=== PATIENT | female | born 1950 | race Caucasian/White ===

== ENCOUNTER 2016-11-16 13:35 | Emergency (ER) | payer MEDICARE ==
[2016-11-16 14:13] LABS: BASOPHIL# 0.1 X 10^3uL (0.0-0.1); BASOPHILS 0.9 % (0.0-2.0); EOSINOPHILS 13.3 % (0.0-6.0); EOSINOPHILS# 0.9 X 10^3uL (0.0-0.4); HEMATOCRIT 40.3 % (36.0-48.0); HEMOGLOBIN 13.7 g/dL (12.0-16.0); LYMPHOCYTES 20.5 % (20.0-40.0); LYMPHOCYTES# 1.4 X 10^3uL (0.8-3.8); MEAN CELL VOLUME 87.3 fL (80.0-100.0); MEAN CORPUS. HGB CONCENTRATION 33.9 g/dL (32.0-36.0); MEAN CORPUSCULAR HEMOGLOBIN 29.6 pg (29.0-35.0); MONOCYTES 6.2 % (2.0-10.0); MONOCYTES# 0.4 X 10^3uL (0.2-1.0); NEUTROPHILS 59.1 % (54.0-75.0); NEUTROPHILS# 3.9 X 10^3uL (2.6-6.7); RED BLOOD COUNT 4.62 X 10^6uL (4.20-6.10); RED CELL DISTRIBUTION WIDTH 12.8 % (11.5-14.5); WHITE BLOOD COUNT 6.7 X 10^3uL (3.9-10.7)
[2016-11-16 14:26] LABS: A/G RATIO 1.2; ALBUMIN 3.8 g/dL (3.5-5.0); BILIRUBIN, TOTAL 0.6 mg/dL (0.2-1.3); C-REACTIVE PROTEIN 6.6 mg/L (<10.0); CALCIUM 8.9 mg/dL (8.4-10.2); POTASSIUM 4.2 mmol/L (3.5-5.1); TOTAL PROTEIN 6.9 g/dL (6.3-8.2); URIC ACID 5.2 mg/dL (2.5-6.2)
--- NOTE | 2016-11-16 15:40 | ER NURSING DOCUMENTATION ---
Nurse's Notes [facility] Name:Herminia Meng Age:66 yrs Sex:Female :1950 Arrival Date:11/16/2016 Time:13:35 Bed1 Private MD:Kyesha Najera Diagnosis:Gout Presentation: 11/16 13:46 Presenting complaint: Patient states: pt has had right big toe pain in the morning of st the last three days today that pain will not go away. pt right big toe joint is swollen and red. pt has no hx of gout. Transition of care: Home. 13:46 Acuity: BY[facility] 4 st 13:46 Method Of Arrival: Private Vehicle st Triage Assessment: 13:49 General: Appears uncomfortable, Behavior is cooperative. Pain: Complains of pain in st right first toe Pain currently is 5 out of 10 on a pain scale. Pain began 2-3 days ago. Cardiovascular: No deficits noted. Respiratory: No deficits noted. GI: No deficits noted. Derm: Skin is red, around right big toe joint. Musculoskeletal: Swelling present in right first toe. Historical: - Allergies: PENICILLINS; - Home Meds: 1. avipro 2. Norvasc Oral 3. Plaquenil Oral 4. Aleve Oral 5. Prilosec Oral - PMHx: ARTHRITIS; HYPERTENSION; - PSHx: KNEE SURGERY; - Tetanus: < 10 years. - Ebola Screening: : Patient denies exposure to infectious person. Patient denies travel to an Ebola-affected area in the 21 days before illness onset. . - Immunization history: Pneumococcal vaccine status is unknown. - Social history: Smoking status: Patient states was never smoker of tobacco. Patient uses alcohol but reports only rare drinking. Patient/guardian denies using marijuana. Screenin:51 Infectious Disease Risk None. Abuse screen: Denies threats or abuse. Denies injuries st from another. pt feels safe at home. Nutritional screening: No deficits noted. Assessment: 13:50 General: pt was on a plan a few days ago. pt also has recently consumed sea food and st ETOH in quanties that are unusual for her. . 15:22 General: pt resting quietly.. st 15:24 General: pt resting quietly. Up dated on plan of care. . st Vital Signs: 13:50 BP 126 / 70; Pulse 78; Temp 97.9; Pulse Ox 93% ; Pain 5/10; st 15:23 BP 125 / 74; Pulse 79; Pulse Ox 94% ; st ED Course: 13:38 Patient arrived in ED. ama 13:39 Keysha Najera MD is Private Physician. ama 13:45 Rodrick Dean MD is Attending Physician. tl1 13:46 Josette Laughlin RN is Primary Nurse. st 13:[address] 13:51 Valuables Remains with patient Patient has correct armband on for positive st identification. Bed in low position. 14:03 Labs drawn. (by ED staff). st 14:15 Port Xray Completed. pm1 15:26 Keysha Najera MD is Referral Physician. tl1 Administered Medications: No medications were administered Outcome: 15: Discharge ordered by . tl1 15:39 Discharged to home ambulatory. st 15:39 Condition: stable 15:39 Discharge instructions given to patient, Instructed on discharge instructions, follow up and referral plans. medication usage, Prescriptions given X 3. 15:40 Patient left the ED. 11/17 12:18 Discharge F/U Call: Unable to reach: no answer ks 11/18 09:51 Discharge F/U Call: Spoke with: patient. other: Name: pt is doing much better. just st has some minor soreness now. Signatures: Josette Laughlin RN RN st Abuso, Melanie, RN RN ma McBride, Philisha pm1 Jax Landa, Reg Reg Rodrick Voss MD MD tl1
--- NOTE | 2016-11-16 15:40 | ER PHYSICIAN DOCUMENTATION ---
Physician Documentation [facility] Name:Herminia Meng Age:66 yrs Sex:Female :1950 Arrival Date:11/16/2016 Time:13:35 Bed1 Private MD:Keysha Najera ED, Tom Disposition: 11/16 16:00 Chart complete. tl1 Disposition: 11/16/16 15:27 Discharged to Home/Self Care. Impression: Gout. - Condition is Good. - Discharge Instructions: GOUTY ARTHRITIS. - Prescriptions for colchicine 0.6 mg Oral tablet - take 1 tablet by ORAL route every 6 hours; 5 tablet. [place] 7.5- 325 mg Oral Tablet - take 1 tablet by ORAL route every 6 hours As needed; 20 tablet. Zofran 4 mg Oral Tablet - take 1-2 tablet by ORAL route every 4-6 hours As needed; 10 tablet. - Medical Reconciliation form form. - Follow up: Keysha Najera MD; When: 2 - 3 days; Reason: Recheck today's complaints, Continuance of care. - Problem is new. - Symptoms are unchanged. HPI: 13:45 This 66 yrs old Female presents to ER with complaints of Great toe pain- tl1 RIGHT. 13:45 Gradually worse right great toe TMT Joint pain and swelling for the past 4 days or so, tl1 worse today. Mild redness. No f/c/s. She says she has a long h/o a vague inflammatory arthritis, treated with naproxen. She thinks she has mild renal insufficiency diagnosed in August, but is otherwise healthy and continuing with her daily naproxen. Historical: - Allergies: PENICILLINS; - Home Meds: 1. avipro 2. Norvasc Oral 3. Plaquenil Oral 4. Aleve Oral 5. Prilosec Oral - PMHx: ARTHRITIS; HYPERTENSION; - PSHx: KNEE SURGERY; - Tetanus: < 10 years. - Ebola Screening: : Patient denies exposure to infectious person. Patient denies travel to an Ebola-affected area in the 21 days before illness onset. . - Immunization history: Pneumococcal vaccine status is unknown. - Social history: Smoking status: Patient states was never smoker of tobacco. Patient uses alcohol but reports only rare drinking. Patient/guardian denies using marijuana. ROS: 13:55 MS/extremity: Positive for pain, swelling. tl1 13:55 All other systems are negative. Exam: 14:10 Constitutional: The patient appears in no acute distress, alert, awake, non-toxic, well tl1 developed, well hydrated, well groomed, well nourished, uncomfortable. 14:10 Head/face: Exam is negative for acute changes. 14:10 Cardiovascular: Rate: normal. 14:10 Respiratory: Respirations: normal. 14:10 Musculoskeletal/extremity: Extremities: grossly normal except: noted in the FIRST TMT JOINT: erythema, swelling, tenderness. 14:10 Skin: Exam negative for acute changes, rash. Vital Signs: 13:50 BP 126 / 70; Pulse 78; Temp 97.9; Pulse Ox 93% ; Pain 5/10; st 15:23 BP 125 / 74; Pulse 79; Pulse Ox 94% ; st MDM: 13:45 Patient medically screened. tl1 15:20 Differential diagnosis: arthritis, gout, cellulitis. Data reviewed: vital signs, nurses tl1 notes, lab test result(s), CBC, URIC ACID, ESR, CRP, radiologic studies, plain films, and as a result, I will discharge patient. Test interpretation: by ED physician or midlevel provider: plain radiologic studies. Counseling: I had a detailed discussion with the patient and/or guardian regarding: the historical points, exam findings, and any diagnostic results supporting the discharge/admit diagnosis, lab results, radiology results, the need for outpatient follow up, with the patient's primary care provider, to return to the emergency department if symptoms worsen or persist or if there are any questions or concerns that arise at home. Response to treatment: There is no appreciated change of the patient's symptoms at this time, and as a result, I will discharge patient. ED course: Hard to say for sure this is gout, but it could be. Recommended short course of colchicine, as she is failing aleve, and see how she feels tomorrow. 11/16 14: Order name: COMPREHENSIVE METABOLIC PANEL; Complete Time: 15:10 EDMS 11/16 15:10 Interpretation: SODIUM 143; POTASSIUM 4.2; CHLORIDE 108; CARBON DIOXIDE 24; GLUCOSE 88; tl1 BLOOD UREA NITROGEN 25; CREATININE 1.0. 11/16 14: Order name: URIC ACID; Complete Time: 15:10 EDMS 11/16 15:10 Interpretation: Normal: URIC ACID 5.2. 1 11/16 14:27 Order name: C-REACTIVE PROTEIN; Complete Time: 15:10 EDMS 11/16 15:10 Interpretation: Normal: C-REACTIVE PROTEIN 6.6. 1 11/16 14:27 Order name: CBC AUTO DIF, MDIF/RMOR IF IND; Complete Time: 15:10 EDMS 11/16 15:10 Interpretation: HEMOGLOBIN 13.7; HEMATOCRIT 40.3; PLATELET COUNT 183; EOSINOPHILS 13.3. [facility] 11/16 14:46 Order name: ERYTHROCYTE SEDIMENTATION RATE; Complete Time: 15:10 EDMS 11/17 00:45 Interpretation: Normal: ERYTHROCYTE SEDIMENTATION RATE 9. tl1 Dispensed Medications: No medications were administered Signatures: Josette Laughlin RN RN st Leigh, Tom, MD MD tl1
--- NOTE | 2016-11-19 12:22 | RADIOLOGY REPORT ---
Three views of the right foot without prior films for comparison demonstrate no displaced fracture or dislocation. Marked degenerative changes of the first metatarsal phalangeal joint are noted. A plantar calcaneal spur is seen. No other abnormality is identified. IMPRESSION: Chronic changes as described. No acute displaced injury is identified. If clinically indicated, further evaluation and/or follow-up may be of benefit. MELODYD
== END 2016-11-16 15:40 | disposition home or self-care (01) ==
LOC: ER 13:35
DX: M10.9 Gout, unspecified (principal); M79.674 Pain in right toe(s); I10 Essential (primary) hypertension; Z79.899 Other long term (current) drug therapy; Z79.1 Long term (current) use of non-steroidal anti-inflammatories (NSAID)
CPT/HCPCS: 80053; 84550; 85025; 85651; 86140; 99283